=== PATIENT | male | born 1930 | race Caucasian/White ===

== ENCOUNTER 2016-08-09 08:56 | Inpatient (IN) | payer OTHER, BC ==
[~2016-08-09] VITALS: Ht 167.6 cm; Wt 62.9 kg
[~2016-08-09 08:56] MED LIST: ADULT LOW DOSE81 M1 PO; ALLOPURINOL300 MG PO; ANTIVERT25 MG PO; ARMD EYE SUPPORT PO; ARTIFICIAL TEAR1510 BOTH EYES; ASPIR 8181 MG PO; ASPIRIN325 MG PO; ASPIRIN81 M1 PO; ATIVAN1 MG PO; ATORVASTATIN CA40 MG PO; BENTYL10 MG PO; BUTALB-ACETAMI1 EAC2 PO; CALCIUM 600 +1 EACH PO; CALCIUM 600 MG1 EAC1 PO; CALCIUM600 MG PO; CALTRATE 600600 MG PO; CARDIZEM CD240 MG PO; CIPRO500 MG PO; CRESTOR20 MG PO; DICYCLOMINE HCL10 MG PO; DRAMAMINE II NG; ELIQUIS2.5 MG PO; FINASTERIDE5 MG PO; FLAGYL500 MG PO; FLOMAX0.4 MG PO; FUROSEMIDE40 MG PO; Flomax PO; GAS-X80 MG PO; HYDROCHLOROTHIA25 MG PO; HYDROCODON-ACE1 EAC7 PO; K-DUR20 MEQ PO; KLOR-CON 88 MEQ PO; LASIX40 MG PO; LIPITOR40 MG PO; LISINOPRIL10 MG PO; LOPRESSOR50 MG PO; LORAZEPAM0.5 MG PO; LORAZEPAM1 MG PO; Levaquin PO; MECLIZINE HCL25 MG PO; METOPROLOL SUCC50 MG PO; METOPROLOL TART50 MG PO; MIRALAX17 GM PO; NEXIUM40 MG PO; NITROBID PO; NITROSTAT0.4 MG SL; OMEPRAZOLE40 M1 PO; PANTOPRAZOLE SO40 MG PO; PRINIVIL10 MG PO; PROTONIX40 MG PO; Proscar PO; REPAN 50-325-41 EAC1 PO; SALINE NASAL SP45 ML BOTH NARES; SIMCOR 500-201 EACH PO; SPIRONOLACTONE25 MG PO; TAMSULOSIN HCL0.4 MG PO; TOPROL XL50 MG PO; TRAMADOL HCL50 MG PO; TRILIPIX135 MG PO; TYLENOL EXTRA500 MG PO; TYLENOL REGULA325 MG PO; ULTRAM50 MG PO; VICODIN,LORT1 TABLET PO; ZOFRAN ODT8 MG PO; ZOFRAN4 MG PO; ZYLOPRIM150 MG PO; ZYLOPRIM300 MG PO; ZYRTEC10 M3 PO
[2016-08-09 09:32] LABS: HEMATOCRIT 38.8 % (38.0-50.0); MCH 25.9 PG (29.0-34.0); MCHC 31.2 G/DL (30.0-36.0); MCV 83.1 FL (86-99); MEAN PLAT.VOLUME 10.2 uM^3 (9.0-12.4); PLATELET COUNT 188 K/uL (156-360); RBC DIS.WIDTH-CV 15.3 % (11.8-14.6); RED BLOOD COUNT 4.67 M/uL (4.00-5.50); WHITE BLOOD COUNT 9.8 K/uL (4.1-10.2)
[2016-08-09 09:43] LABS: INTER. NORMALIZED RATIO 1.2; PROTHROMBIN TIME 12.4 (9.2-11.2); PTT 29.9 (25-32)
[2016-08-09 09:44] LABS: CHLORIDE 104 mEq/L (99-109); POTASSIUM 4.7 mEq/L (3.7-5.4); SODIUM 136 mEq/L (136-147)
[2016-08-09 09:46] LABS: GLUCOSE 122 mg/dL (70-99)
[2016-08-09 09:47] LABS: ANION GAP 11 MEQ/L (2-14)
[2016-08-09 09:50] LABS: GFR ESTIMATE (CALCULATED) 47 mL/min/
[2016-08-09 09:51] LABS: UREA NITROGEN (BUN) 24 mg/dL (9-23)
[2016-08-09 09:53] LABS: TROP-I INTERPRETATION NEGATIVE; TROPONIN-I 0.02 ng/mL (0.0-0.30)
[2016-08-09] MEDS ORDERED: TYLENOL EXTRA500 MG PO (11:44)
[2016-08-09] MEDS ORDERED: EYE HEALTH ADU1 EACH PO ×2 (11:48)
[2016-08-09] MEDS ORDERED: DAILY VITE1 EAC1 PO (11:49)
[2016-08-09 12:34] LABS: ADD MIUA? YES; BILIRUBIN NEGATIVE; BLOOD SMALL; COLOR YELLOW ((YELLOW)); GLUCOSE (STRIP) NEGATIVE; KETONES NEGATIVE; LEUKOCYTES NEGATIVE; NITRITE NEGATIVE; PROTEIN (STRIP) NEGATIVE; SPECIFIC GRAVITY 1.036 (1.000-1.030); UROBILINOGEN 0.2 MG/DL (0.2-1.0)
[2016-08-09 12:43] LABS: BACTERIA NONE SEEN /HPF; EPITHELIAL CELLS NONE SEEN /HPF; MUCUS NONE SEEN /LPF; RED BLOOD CELLS 0-5 /HPF (0-5); UCUL ADDED? NO; WHITE BLOOD CELLS NONE SEEN /HPF (0-5)
[2016-08-09 16:09] VITALS: BP 199/96
[2016-08-09 16:40] VITALS: BP 199/96
[2016-08-09 19:15] VITALS: BP 150/76
[2016-08-09 21:11] LABS: HEMATOCRIT 34.2 % (38.0-50.0)
[2016-08-09 23:00] VITALS: BP 139/68
[2016-08-10 03:00] VITALS: BP 157/77
[2016-08-10 06:38] LABS: HEMATOCRIT 32.3 % (38.0-50.0); MCV 83.9 FL (86-99)
[2016-08-10 07:09] LABS: ANION GAP 6 MEQ/L (2-14); CHLORIDE 105 MEQ/L (99-109); GFR ESTIMATE (CALCULATED) 56 mL/min/; SAMPLE HEMOLYSIS CHECK 0; SAMPLE ICTERIC CHECK 0; SAMPLE LIPEMIA CHECK 0; SODIUM 137 MEQ/L (136-147); UREA NITROGEN (BUN) 21 mg/dL (9-23)
[2016-08-10 07:10] LABS: GLUCOSE 85 mg/dL (70-99)
[2016-08-10 07:41] LABS: INTERNAL CONTROL VALID? YES
[2016-08-10 08:01] VITALS: BP 147/75
[2016-08-10 12:15] VITALS: BP 126/66
[2016-08-10 16:46] VITALS: BP 155/79
[2016-08-10 20:00] VITALS: BP 139/71
[2016-08-10 21:16] LABS: HEMATOCRIT 36.1 % (38.0-50.0); MCV 83.2 FL (86-99)
[2016-08-10 23:00] VITALS: BP 172/84
[2016-08-11] VITALS (7 sets, daily range): BP systolic 146–180; BP diastolic 67–95
[2016-08-11 09:56] LABS: HEMATOCRIT 35.4 % (38.0-50.0); MCV 84.1 FL (86-99)
[2016-08-11 21:07] LABS: HEMATOCRIT 35.6 % (38.0-50.0); MCV 83.8 FL (86-99)
[2016-08-12 03:15] VITALS: BP 176/84
[2016-08-12 04:51] VITALS: BP 131/60
[2016-08-12 07:34] VITALS: BP 132/82
[2016-08-12 11:36] VITALS: BP 132/61
[2016-08-12 16:38] VITALS: BP 143/80
[2016-08-12 20:34] VITALS: BP 152/67
[2016-08-13 00:34] VITALS: BP 163/82
[2016-08-13 06:04] VITALS: BP 119/71
[2016-08-13 07:40] VITALS: BP 137/65
[2016-08-13 11:37] VITALS: BP 113/53
[2016-08-13] MEDS ORDERED: LEVOFLOXACIN750 MG PO (12:29)
== END 2016-08-13 13:47 | disposition home or self-care (01) | DRG 190 ==
LOC: EME 08:56 → EDOF 11:30 → 4EAST 11:30 → EDOF 11:30 → 4EAST 15:53
PROVIDERS: Emergency Medicine; Internal Medicine; Internal Medicine Pulmonary Disease
DX: J44.0 Chronic obstructive pulmonary disease with (acute) lower respiratory infection (principal); J18.9 Pneumonia, unspecified organism; R04.2 Hemoptysis; I13.0 Hypertensive heart and chronic kidney disease with heart failure and stage 1 through stage 4 chronic kidney disease, or unspecified chronic kidney disease; I50.9 Heart failure, unspecified; N18.9 Chronic kidney disease, unspecified; H91.90 Unspecified hearing loss, unspecified ear; I48.2 Chronic atrial fibrillation; I25.10 Atherosclerotic heart disease of native coronary artery without angina pectoris; Z95.5 Presence of coronary angioplasty implant and graft; Z95.1 Presence of aortocoronary bypass graft; E78.5 Hyperlipidemia, unspecified; Z87.891 Personal history of nicotine dependence; Z79.01 Long term (current) use of anticoagulants; E78.00 Pure hypercholesterolemia, unspecified; F03.90 Unspecified dementia, unspecified severity, without behavioral disturbance, psychotic disturbance, mood disturbance, and anxiety; K21.9 Gastro-esophageal reflux disease without esophagitis; Z87.01 Personal history of pneumonia (recurrent)
CPT/HCPCS: 71020; 71260; 80048; 81003; 83605; 84484; 85014; 85018; 85027; 85610; 85730; 87040; 87449; 93005; 94799; 99202; 99281; 99285; J0696; J7050

== ENCOUNTER 2016-10-06 16:12 | Emergency (ER) | payer OTHER, BC ==
[~2016-10-06] VITALS: Ht 167.6 cm; Wt 62.5 kg
[~2016-10-06 16:12] MED LIST changes: +DAILY VITE1 EAC1 PO; +EYE HEALTH ADU1 EACH PO; +LEVOFLOXACIN750 MG PO
[2016-10-06 16:38] LABS: HEMATOCRIT 39.4 % (38.0-50.0); MCH 25.5 PG (29.0-34.0); MCV 82.4 FL (86-99); MEAN PLAT.VOLUME 10.4 uM^3 (9.0-12.4); PLATELET COUNT 163 K/uL (156-360); RBC DIS.WIDTH-CV 16.5 % (11.8-14.6); RBC DIS.WIDTH-SD 48.3 % (39-53); RED BLOOD COUNT 4.78 M/uL (4.00-5.50); WHITE BLOOD COUNT 6.5 K/uL (4.1-10.2)
[2016-10-06 16:44] LABS: CHLORIDE 105 mEq/L (99-109); POTASSIUM 4.8 mEq/L (3.7-5.4); SODIUM 136 mEq/L (136-147)
[2016-10-06 16:46] LABS: GLUCOSE 120 mg/dL (70-99)
[2016-10-06 16:47] LABS: ANION GAP 9 MEQ/L (2-14)
[2016-10-06 16:50] LABS: GFR ESTIMATE (CALCULATED) 41 mL/min/; UREA NITROGEN (BUN) 41 mg/dL (9-23)
[2016-10-06 16:58] LABS: TROP-I INTERPRETATION NEGATIVE; TROPONIN-I 0.01 ng/mL (0.0-0.30)
[2016-10-06 21:18] VITALS: BP 136/88
== END 2016-10-06 21:20 | disposition home or self-care (01) ==
LOC: TRA 16:12 → EME 16:12 → TRA 21:20
PROVIDERS: Emergency Medicine
PROC: 0HQ1XZZ Repair Face Skin, External Approach (ICD-10-PCS; principal; 2016-10-06)
DX: S01.81XA Laceration without foreign body of other part of head, initial encounter (principal); S80.211A Abrasion, right knee, initial encounter; W01.0XXA Fall on same level from slipping, tripping and stumbling without subsequent striking against object, initial encounter; M79.659 Pain in unspecified thigh; I48.91 Unspecified atrial fibrillation; I11.0 Hypertensive heart disease with heart failure; I50.9 Heart failure, unspecified; E78.5 Hyperlipidemia, unspecified; K21.9 Gastro-esophageal reflux disease without esophagitis; M10.9 Gout, unspecified; N40.0 Benign prostatic hyperplasia without lower urinary tract symptoms; F32.9 Major depressive disorder, single episode, unspecified; Z95.1 Presence of aortocoronary bypass graft; Z95.5 Presence of coronary angioplasty implant and graft; H91.90 Unspecified hearing loss, unspecified ear; Z87.891 Personal history of nicotine dependence; Z88.0 Allergy status to penicillin
CPT/HCPCS: 70450; 72125; 73030; 73502; 73564; 73700; 74176; 80048; 84484; 85027; 93005; 99281; 99285; J2270; J2405

== ENCOUNTER 2016-10-14 12:27 | Inpatient (IN) | payer OTHER, BC ==
[2016-10-14] VITALS (8 sets, daily range): BP systolic 138–177; BP diastolic 62–86
[~2016-10-14] VITALS: Ht 167.6 cm; Wt 66.1 kg
[2016-10-14 13:19] LABS: EOSINOPHIL (%) 2.2 % (0-5); EOSINOPHIL COUNT 0.1 K/uL (0-0.3); HEMATOCRIT 25.1 % (38.0-50.0); IMMATURE GRANULOCYTE (%) 1.5 % (0.0-0.7); IMMATURE GRANULOCYTE COUNT 0.1 K/uL; INSTRUMENT ABS NEUTROPHIL CT 3.7 K/uL; LYMPHOCYTE COUNT 1.4 K/uL (1.0-2.8); MCH 26.4 PG (29.0-34.0); MCHC 31.5 G/DL (30.0-36.0); MCV 83.9 FL (86-99); MEAN PLAT.VOLUME 10.1 uM^3 (9.0-12.4); MONOCYTE (%) 9.5 % (3-12); MONOCYTE COUNT 0.6 K/uL (0-0.8); NEUTROPHIL (%) 62.5 % (45-76); NEUTROPHIL COUNT 3.7 K/uL (1.8-6.4); PLATELET COUNT 193 K/uL (156-360); RBC DIS.WIDTH-SD 51.6 % (39-53); RED BLOOD COUNT 2.99 M/uL (4.00-5.50); WHITE BLOOD COUNT 5.9 K/uL (4.1-10.2)
[2016-10-14 13:25] LABS: INTER. NORMALIZED RATIO 1.5; PROTHROMBIN TIME 16.4 SEC (10.2-12.9)
[2016-10-14 13:28] LABS: CHLORIDE 104 mEq/L (99-109); POTASSIUM 5.1 mEq/L (3.7-5.4); SODIUM 132 mEq/L (136-147)
[2016-10-14 13:30] LABS: GLUCOSE 112 mg/dL (70-99)
[2016-10-14 13:32] LABS: ANION GAP 6 MEQ/L (2-14); TOTAL BILIRUBIN 1.1 mg/dL (0.0-1.0)
[2016-10-14 13:34] LABS: ALKALINE PHOSPHATASE 93 IU/L (3-129); GFR ESTIMATE (CALCULATED) 44 mL/min/
[2016-10-14 13:35] LABS: UREA NITROGEN (BUN) 47 mg/dL (9-23)
[2016-10-14 13:37] LABS: CK-MB 3.1 ng/mL (0.0-4.9); CREATINE KINASE 139 IU/L (1-294); TOTAL CK 139 IU/L (1-294)
[2016-10-14 13:47] LABS: BILIRUBIN NEGATIVE; BLOOD NEGATIVE; COLOR YELLOW ((YELLOW)); GLUCOSE (STRIP) NEGATIVE; KETONES NEGATIVE; LEUKOCYTES NEGATIVE; NITRITE NEGATIVE; PROTEIN (STRIP) 30; SPECIFIC GRAVITY 1.025 (1.000-1.030); UROBILINOGEN 0.2 MG/DL (0.2-1.0)
[2016-10-14 13:48] LABS: ADD MIUA? NO; UCUL ADDED? NO
[2016-10-14] MEDS ORDERED: CENTRUM SILVER1 EAC5 PO (17:38)
[2016-10-14] MEDS ORDERED: MECLIZINE HCL25 MG PO (17:40)
[2016-10-15 02:35] LABS: HEMATOCRIT 28.9 % (38.0-50.0); MCV 79.2 FL (86-99)
[2016-10-15 03:47] VITALS: BP 177/74
[2016-10-15 07:30] VITALS: BP 169/80
[2016-10-15 08:25] LABS: HEMATOCRIT 30.2 % (38.0-50.0); MCV 80.3 FL (86-99)
[2016-10-15 11:15] VITALS: BP 178/76
[2016-10-15 15:06] VITALS: BP 179/74
[2016-10-15 19:18] VITALS: BP 130/72
[2016-10-15 20:05] LABS: HEMATOCRIT 28.1 % (38.0-50.0); MCV 80.7 FL (86-99)
[2016-10-15 23:25] VITALS: BP 145/78
[2016-10-16 07:40] VITALS: BP 188/78
[2016-10-16 08:53] LABS: HEMATOCRIT 31.8 % (38.0-50.0); MCV 80.5 FL (86-99)
== END 2016-10-16 13:21 | disposition home health service (06) | DRG 812 ==
LOC: EME 12:27 → EDOF 17:12 → 2EASTP 17:12 → ENRESERV 17:20 → CANRESERV 18:02 → 2EASTP 20:00 → ENRESERV 20:00 → 2EASTP 10-16 13:21
PROVIDERS: Emergency Medicine; Internal Medicine
PROC: 30233N1 Transfusion of Nonautologous Red Blood Cells into Peripheral Vein, Percutaneous Approach (ICD-10-PCS; principal; 2016-10-14)
DX: D62 Acute posthemorrhagic anemia (principal); F33.9 Major depressive disorder, recurrent, unspecified; E78.5 Hyperlipidemia, unspecified; I12.9 Hypertensive chronic kidney disease with stage 1 through stage 4 chronic kidney disease, or unspecified chronic kidney disease; S01.01XD Laceration without foreign body of scalp, subsequent encounter; S01.81XD Laceration without foreign body of other part of head, subsequent encounter; S70.11XD Contusion of right thigh, subsequent encounter; I25.10 Atherosclerotic heart disease of native coronary artery without angina pectoris; I48.2 Chronic atrial fibrillation; W19.XXXD Unspecified fall, subsequent encounter; S10.83XD Contusion of other specified part of neck, subsequent encounter; S00.83XD Contusion of other part of head, subsequent encounter; J30.2 Other seasonal allergic rhinitis; M10.9 Gout, unspecified; K21.9 Gastro-esophageal reflux disease without esophagitis; N40.0 Benign prostatic hyperplasia without lower urinary tract symptoms; N18.9 Chronic kidney disease, unspecified; Z88.0 Allergy status to penicillin; Z88.6 Allergy status to analgesic agent; Z90.49 Acquired absence of other specified parts of digestive tract; Z95.1 Presence of aortocoronary bypass graft; Z95.5 Presence of coronary angioplasty implant and graft; Z91.81 History of falling; Z87.891 Personal history of nicotine dependence; Z85.51 Personal history of malignant neoplasm of bladder; Z79.01 Long term (current) use of anticoagulants
CPT/HCPCS: 70450; 73700; 80053; 81003; 82550; 82553; 85014; 85018; 85025; 85610; 85730; 86900; 86901; 86920; 93971; 99281; 99283; J3010; J7030; P9016

== ENCOUNTER 2017-05-23 06:25 | Emergency (ER) | payer OTHER, BC ==
[~2017-05-23] VITALS: Ht 167.6 cm; Wt 72.7 kg
[~2017-05-23 06:25] MED LIST changes: +CENTRUM SILVER1 EAC5 PO
[2017-05-23 07:20] LABS: BASOPHIL (%) 0.5 % (0-1); EOSINOPHIL (%) 0.6 % (0-5); HEMATOCRIT 37.8 % (38.0-50.0); HEMOGLOBIN 12.4 G/DL (12.5-16.6); IMMATURE GRANULOCYTE (%) 0.3 % (0.0-0.7); LYMPHOCYTE (%) 24.8 % (15-42); LYMPHOCYTE COUNT 1.6 K/uL (1.0-2.8); MCH 29.3 PG (29.0-34.0); MCHC 32.8 G/DL (30.0-36.0); MCV 89.4 FL (86-99); MONOCYTE (%) 8.1 % (3-12); MONOCYTE COUNT 0.5 K/uL (0-0.8); NEUTROPHIL (%) 65.7 % (45-76); NEUTROPHIL COUNT 4.1 K/uL (1.8-6.4); PLATELET COUNT 136 K/uL (156-360); RBC DIS.WIDTH-CV 14.3 % (11.8-14.6); RBC DIS.WIDTH-SD 46.3 % (39-53); RED BLOOD COUNT 4.23 M/uL (4.00-5.50); WHITE BLOOD COUNT 6.3 K/uL (4.1-10.2)
[2017-05-23 07:26] LABS: INTER. NORMALIZED RATIO 1.5
[2017-05-23 07:29] LABS: PTT 35.3 SEC (25-37)
[2017-05-23 07:45] LABS: TROP-I INTERPRETATION NEGATIVE; TROPONIN-I < 0.01 ng/mL (0.0-0.30)
[2017-05-23 07:54] LABS: ALBUMIN 3.8 G/DL (3.2-4.8); ALKALINE PHOSPHATASE 92 IU/L (3-129); ALT (GPT) 8 IU/L (3-49); AST (GOT) 12 IU/L (2-34); CHLORIDE 105 MEQ/L (99-109); CREATININE 1.2 MG/DL (0.6-1.3); GFR ESTIMATE (CALCULATED) > 59 mL/min/ (58.99-99999); GLUCOSE 100 mg/dL (70-99); POTASSIUM 4.3 MEQ/L (3.7-5.4); SODIUM 138 MEQ/L (136-147); TOTAL BILIRUBIN 0.6 MG/DL (0.0-1.0); UREA NITROGEN (BUN) 28 mg/dL (9-23)
[2017-05-23 08:03] LABS: APPEARANCE CLEAR ((CLEAR)); BILIRUBIN NEGATIVE; BLOOD NEGATIVE; COLOR YELLOW ((YELLOW)); GLUCOSE (STRIP) NEGATIVE; KETONES NEGATIVE; LEUKOCYTES NEGATIVE; NITRITE NEGATIVE; PROTEIN (STRIP) NEGATIVE; SPECIFIC GRAVITY 1.014 (1.000-1.030); UCUL ADDED? NO; UROBILINOGEN 0.2 MG/DL (0.2-1.0)
[2017-05-23 09:48] LABS: TROP-I INTERPRETATION NEGATIVE; TROPONIN-I 0.02 ng/mL (0.0-0.30)
[2017-05-23 10:19] VITALS: BP 106/63
== END 2017-05-23 10:24 | disposition home or self-care (01) ==
LOC: EME → EDBD 06:25 → EME 10:24
PROVIDERS: Emergency Medicine
DX: R11.0 Nausea (principal); I10 Essential (primary) hypertension; R07.9 Chest pain, unspecified; R53.1 Weakness; M10.9 Gout, unspecified; N40.1 Benign prostatic hyperplasia with lower urinary tract symptoms; K21.9 Gastro-esophageal reflux disease without esophagitis; F32.9 Major depressive disorder, single episode, unspecified; E78.5 Hyperlipidemia, unspecified; Z95.5 Presence of coronary angioplasty implant and graft; Z95.1 Presence of aortocoronary bypass graft; Z88.6 Allergy status to analgesic agent; Z88.0 Allergy status to penicillin; Z87.891 Personal history of nicotine dependence; I48.91 Unspecified atrial fibrillation
CPT/HCPCS: 71045; 80053; 81003; 84484; 85025; 85610; 85730; 93005; 99281; 99284

== ENCOUNTER 2017-09-22 10:03 | Emergency (ER) | payer OTHER, BC ==
[~2017-09-22] VITALS: Ht 167.6 cm; Wt 6.3 kg
[2017-09-22 11:04] LABS: BASOPHIL (%) 0.5 % (0-1); EOSINOPHIL (%) 0.7 % (0-5); HEMATOCRIT 39.2 % (38.0-50.0); HEMOGLOBIN 12.8 G/DL (12.5-16.6); IMMATURE GRANULOCYTE (%) 0.3 % (0.0-0.7); LYMPHOCYTE COUNT 1.3 K/uL (1.0-2.8); MCH 28.8 PG (29.0-34.0); MCHC 32.7 G/DL (30.0-36.0); MCV 88.3 FL (86-99); MONOCYTE (%) 8.4 % (3-12); MONOCYTE COUNT 0.5 K/uL (0-0.8); NEUTROPHIL (%) 68.1 % (45-76); NEUTROPHIL COUNT 4.1 K/uL (1.8-6.4); PLATELET COUNT 138 K/uL (156-360); RBC DIS.WIDTH-CV 15.5 % (11.8-14.6); RBC DIS.WIDTH-SD 49.8 % (39-53); RED BLOOD COUNT 4.44 M/uL (4.00-5.50); WHITE BLOOD COUNT 6.1 K/uL (4.1-10.2)
[2017-09-22 11:07] LABS: INTER. NORMALIZED RATIO 1.7
[2017-09-22 11:10] LABS: CHLORIDE 104 mEq/L (99-109); PTT 37.1 SEC (25-37); SODIUM 139 mEq/L (136-147)
[2017-09-22 11:12] LABS: GLUCOSE 111 mg/dL (70-99)
[2017-09-22 11:15] LABS: CREATININE 1.2 mg/dL (0.6-1.3); GFR ESTIMATE (CALCULATED) > 59 mL/min/ (58.99-99999)
[2017-09-22 11:16] LABS: UREA NITROGEN (BUN) 20 mg/dL (9-23)
[2017-09-22 11:19] LABS: TROP-I INTERPRETATION NEGATIVE; TROPONIN-I 0.02 ng/mL (0.0-0.30)
[2017-09-22 11:30] LABS: APPEARANCE CLEAR ((CLEAR)); BILIRUBIN NEGATIVE; BLOOD NEGATIVE; COLOR STRAW ((YELLOW)); GLUCOSE (STRIP) NEGATIVE; KETONES NEGATIVE; LEUKOCYTES NEGATIVE; NITRITE NEGATIVE; PROTEIN (STRIP) NEGATIVE; SPECIFIC GRAVITY 1.008 (1.000-1.030); UCUL ADDED? NO; UROBILINOGEN 0.2 MG/DL (0.2-1.0)
[2017-09-22 13:09] VITALS: BP 141/114
== END 2017-09-22 13:09 | disposition home or self-care (01) ==
LOC: EME 10:03
PROVIDERS: Emergency Medicine
DX: R51 Headache (principal); R53.1 Weakness; I11.0 Hypertensive heart disease with heart failure; I50.9 Heart failure, unspecified; I48.91 Unspecified atrial fibrillation; Z79.01 Long term (current) use of anticoagulants; E78.5 Hyperlipidemia, unspecified; F32.9 Major depressive disorder, single episode, unspecified; K21.9 Gastro-esophageal reflux disease without esophagitis; N40.0 Benign prostatic hyperplasia without lower urinary tract symptoms; M10.9 Gout, unspecified; Z95.1 Presence of aortocoronary bypass graft; Z95.5 Presence of coronary angioplasty implant and graft; Z87.891 Personal history of nicotine dependence; Z88.0 Allergy status to penicillin; Z88.6 Allergy status to analgesic agent
CPT/HCPCS: 70450; 71045; 80048; 81003; 84484; 85025; 85610; 85730; 93005; 99281; 99284

== ENCOUNTER 2017-10-06 09:38 | Emergency (ER) | payer OTHER, BC ==
[~2017-10-06] VITALS: Ht 167.6 cm; Wt 64.0 kg
[2017-10-06 10:31] LABS: HEMATOCRIT 37.2 % (38.0-50.0); HEMOGLOBIN 12.3 G/DL (12.5-16.6); MCH 28.2 PG (29.0-34.0); MCHC 33.1 G/DL (30.0-36.0); MCV 85.3 FL (86-99); PLATELET COUNT 171 K/uL (156-360); RBC DIS.WIDTH-CV 15.1 % (11.8-14.6); RBC DIS.WIDTH-SD 47.3 % (39-53); RED BLOOD COUNT 4.36 M/uL (4.00-5.50); WHITE BLOOD COUNT 6.6 K/uL (4.1-10.2)
[2017-10-06 10:56] LABS: ALBUMIN 3.9 G/DL (3.2-4.8); CHLORIDE 105 MEQ/L (99-109); POTASSIUM 3.7 MEQ/L (3.7-5.4); SODIUM 136 MEQ/L (136-147); TOTAL BILIRUBIN 0.8 MG/DL (0.0-1.0)
[2017-10-06 11:02] LABS: ALKALINE PHOSPHATASE 108 IU/L (3-129); ALT (GPT) 5 IU/L (3-49); AST (GOT) 12 IU/L (2-34); CREATININE 1.1 MG/DL (0.6-1.3); GFR ESTIMATE (CALCULATED) > 59 mL/min/ (58.99-99999); GLUCOSE 113 mg/dL (70-99); TOTAL PROTEIN 6.8 G/DL (6.4-8.3); UREA NITROGEN (BUN) 20 mg/dL (9-23)
[2017-10-06 11:08] LABS: APPEARANCE CLEAR ((CLEAR)); BILIRUBIN NEGATIVE; BLOOD NEGATIVE; COLOR STRAW ((YELLOW)); GLUCOSE (STRIP) NEGATIVE; KETONES NEGATIVE; LEUKOCYTES NEGATIVE; NITRITE NEGATIVE; PROTEIN (STRIP) NEGATIVE; SPECIFIC GRAVITY 1.008 (1.000-1.030); UCUL ADDED? NO; UROBILINOGEN 0.2 MG/DL (0.2-1.0)
[2017-10-06] MEDS ORDERED: PROMETHAZINE12.5 M1 PO (12:42)
[2017-10-06 13:15] VITALS: BP 180/91
== END 2017-10-06 13:16 | disposition home or self-care (01) ==
LOC: EME 09:38
DX: R11.0 Nausea (principal); I10 Essential (primary) hypertension; E78.5 Hyperlipidemia, unspecified; I50.9 Heart failure, unspecified; K21.9 Gastro-esophageal reflux disease without esophagitis; N40.0 Benign prostatic hyperplasia without lower urinary tract symptoms; M10.9 Gout, unspecified; J30.2 Other seasonal allergic rhinitis; H91.90 Unspecified hearing loss, unspecified ear; F32.9 Major depressive disorder, single episode, unspecified; Z95.5 Presence of coronary angioplasty implant and graft; Z95.1 Presence of aortocoronary bypass graft; Z90.49 Acquired absence of other specified parts of digestive tract; Z88.6 Allergy status to analgesic agent; Z88.0 Allergy status to penicillin
CPT/HCPCS: 74177; 80053; 81003; 85027; 99281; 99284

== ENCOUNTER 2017-10-20 09:27 | Inpatient (IN) | payer OTHER, BC ==
[~2017-10-20] VITALS: Ht 167.6 cm; Wt 57.7 kg
[~2017-10-20 09:27] MED LIST changes: +PROMETHAZINE12.5 M1 PO
[2017-10-20 10:43] LABS: BASOPHIL (%) 0.9 % (0-1); BASOPHIL COUNT 0.1 K/uL (0-0.1); EOSINOPHIL (%) 0.9 % (0-5); EOSINOPHIL COUNT 0.1 K/uL (0-0.3); HEMATOCRIT 40.1 % (38.0-50.0); HEMOGLOBIN 13.1 G/DL (12.5-16.6); IMMATURE GRANULOCYTE (%) 0.4 % (0.0-0.7); LYMPHOCYTE (%) 16.9 % (15-42); LYMPHOCYTE COUNT 1.1 K/uL (1.0-2.8); MCH 28.9 PG (29.0-34.0); MCHC 32.7 G/DL (30.0-36.0); MCV 88.3 FL (86-99); MONOCYTE COUNT 0.5 K/uL (0-0.8); NEUTROPHIL (%) 72.9 % (45-76); NEUTROPHIL COUNT 4.9 K/uL (1.8-6.4); PLATELET COUNT 162 K/uL (156-360); RBC DIS.WIDTH-CV 15.1 % (11.8-14.6); RBC DIS.WIDTH-SD 48.2 % (39-53); RED BLOOD COUNT 4.54 M/uL (4.00-5.50); WHITE BLOOD COUNT 6.8 K/uL (4.1-10.2)
[2017-10-20 10:53] LABS: ALBUMIN 3.9 g/dL (3.2-4.8); CHLORIDE 103 mEq/L (99-109); POTASSIUM 4.8 mEq/L (3.7-5.4); SODIUM 135 mEq/L (136-147)
[2017-10-20 10:56] LABS: GLUCOSE 98 mg/dL (70-99); TOTAL PROTEIN 6.8 g/dL (6.4-8.3)
[2017-10-20 10:58] LABS: APPEARANCE CLEAR ((CLEAR)); BILIRUBIN NEGATIVE; BLOOD NEGATIVE; COLOR STRAW ((YELLOW)); GLUCOSE (STRIP) NEGATIVE; KETONES NEGATIVE; LEUKOCYTES NEGATIVE; NITRITE NEGATIVE; PROTEIN (STRIP) NEGATIVE; SPECIFIC GRAVITY 1.009 (1.000-1.030); UCUL ADDED? NO; UROBILINOGEN 0.2 MG/DL (0.2-1.0)
[2017-10-20 10:58] LABS: TOTAL BILIRUBIN 0.9 mg/dL (0.0-1.0)
[2017-10-20 10:59] LABS: ALKALINE PHOSPHATASE 108 IU/L (3-129); CREATININE 1.3 mg/dL (0.6-1.3); GFR ESTIMATE (CALCULATED) 56 mL/min/ (58.99-99999)
[2017-10-20 11:00] LABS: UREA NITROGEN (BUN) 28 mg/dL (9-23)
[2017-10-20 11:01] LABS: AST (GOT) 13 IU/L (2-34)
[2017-10-20 11:02] LABS: ALT (GPT) 10 IU/L (3-49)
[2017-10-20 11:03] LABS: LIPASE 39 U/L (1.0-51.0)
[2017-10-20 15:15] VITALS: BP 189/95
[2017-10-20 20:14] VITALS: BP 124/65
[2017-10-20 23:57] VITALS: BP 118/70
[2017-10-21] VITALS (7 sets, daily range): BP systolic 95–191; BP diastolic 58–95
[2017-10-22] VITALS (8 sets, daily range): BP systolic 110–182; BP diastolic 58–86
[2017-10-23 03:45] VITALS: BP 170/90
[2017-10-23 07:42] VITALS: BP 146/61
[2017-10-23 10:06] VITALS: BP 100/50
[2017-10-23 11:12] VITALS: BP 106/54
[2017-10-23 16:32] VITALS: BP 116/62
[2017-10-23 19:57] VITALS: BP 129/69
== END 2017-10-23 20:04 | disposition home health service (06) | DRG 392 ==
LOC: EME 09:27 → 3EAST 14:42 → EDOF 14:42 → 3EAST 15:17
PROVIDERS: Emergency Medicine
DX: K57.90 Diverticulosis of intestine, part unspecified, without perforation or abscess without bleeding (principal); I16.0 Hypertensive urgency; I12.9 Hypertensive chronic kidney disease with stage 1 through stage 4 chronic kidney disease, or unspecified chronic kidney disease; N18.9 Chronic kidney disease, unspecified; I70.0 Atherosclerosis of aorta; I70.203 Unspecified atherosclerosis of native arteries of extremities, bilateral legs; I95.9 Hypotension, unspecified; I48.1 Persistent atrial fibrillation; D73.4 Cyst of spleen; I71.9 Aortic aneurysm of unspecified site, without rupture; I25.10 Atherosclerotic heart disease of native coronary artery without angina pectoris; E78.5 Hyperlipidemia, unspecified; R00.1 Bradycardia, unspecified; I67.9 Cerebrovascular disease, unspecified; D18.09 Hemangioma of other sites; K21.9 Gastro-esophageal reflux disease without esophagitis; N40.0 Benign prostatic hyperplasia without lower urinary tract symptoms; M10.9 Gout, unspecified; H91.90 Unspecified hearing loss, unspecified ear; Z79.01 Long term (current) use of anticoagulants; Z85.51 Personal history of malignant neoplasm of bladder; Z87.891 Personal history of nicotine dependence; Z95.1 Presence of aortocoronary bypass graft; Z95.5 Presence of coronary angioplasty implant and graft
CPT/HCPCS: 71045; 74183; 80053; 81003; 83605; 83690; 85025; 87040; 93005; 97530 GO; 99281; 99285